=== PATIENT | male | born 1980 | race Caucasian/White ===

== ENCOUNTER 2021-03-09 11:05 | Emergency (ER) | payer OTHER, SELFPAY ==
[2021-03-09 11:06] VITALS: BP 145/86; PULSE 80; RESP 16; TEMP 36; O2SAT 99; BMI 33.3
--- NOTE | 2021-03-09 11:19 | NURSING ---
NO OLD EKGS
--- NOTE | 2021-03-09 11:23 | EDS_ITS ---
HPI History of Present Illness Chief Complaint: Chest Pain Narrative Narrative: Patient presents with 2-day history of constant chest pain on the left side. It is sharp and aching. There is no pleuritic component. There is no radiation of the pain. There is no back pain or tearing sensation. Patient has no lower extremity edema or calf pain no DVT or PE risk factors. No abdominal pain. No shortness of breath. PFSH PFS Medical History (Updated 03/09/21 @ 12:[address] Tin Ivey MD) Ankylosing spondylitis Home Medications meloxicam 7.5 mg PO BID 03/09/21 [History Last Taken Unknown] oxycodone-acetaminophen [Percocet] 1 tab PO Q6H PRN 03/09/21 [History Last Taken Unknown] Allergy/AdvReac Type Severity Reaction Status Date / Time Sulfa (Sulfonamide AdvReac PT UNSURE Verified 03/09/21 11:09 Antibiotics) OF REACTION Surgical History (Updated 03/09/21 @ 12:00 by Rene Laguerre) Hx of appendectomy Hx of tonsillectomy Social History Smoking Status: Current every day smoker tobacco type: cigarettes ROS ROS ED ROS Narrative Past medical history: Reviewed, no medical problems. Medications: Reviewed, no daily medications. Social history: Smoker Family history: He does have a family history of coronary artery disease, his mother started having heart disease in her late 40s. Review of systems: All systems negative except as indicated General: No fever Eyes: No visual changes ENT: No upper airway congestion, normal voice Neck: No neck pain Cardiovascular: No chest pain Respiratory: No shortness of breath or cough Gastrointestinal: No abdominal pain, nausea vomiting or diarrhea Genitourinary: No dysuria Musculoskeletal: Denies myalgias no difficulty with ambulation Skin: No rash Neurological: No memory loss, confusion or any focal weakness Psych: No recent behavioral changes Hematologic: No easy bleeding or easy bruising EXAM Physical Exam Narrative Exam Narrative: Physical exam General: Well nourished, Well developed, No Acute Distress Head: Normocephalic, Atraumatic Eyes: Conjunctiva not pale ENT: Moist mucous membranes Neck: Supple, Nontender, No lymphadenopathy Cardiovascular: Regular rate, Regular rhythm Chest Wall: He has very reproducible parasternal left lower tenderness to palpation. No obvious contusions or rashes. Respiratory: No distress, CTA bilaterally Abdomen: Soft, Nontender, Nondistended Back: Nontender, Normal Inspection. Negative for: CVA tenderness Extremities: Nontender, No edema Skin: Normal color, No rash Neurological: Alert, Normal Strength, Normal Sensation Psychological: Normal affect Const Vital Signs: 03/09/21 11:06 03/09/21 11:49 03/09/21 12:00 Temperature 96.8 F L Temperature Source Temporal Pulse Rate 80 75 Respiratory Rate 16 18 Respiratory Effort Normal Non-Labored Respiratory Pattern Normal Blood Pressure 145/86 H 129/80 H Blood Pressure Mean 105 96 Pulse Ox 99 96 Oxygen Delivery Method Room Air Room Air MDM MDM MDM Narrative Medical decision making narrative: Patient's heart score is 0, 0, 0, 2, 0. Total is 2. He has an unremarkable ED work-up, I believe he is safe for discharge he has no DVT or PE risk factors with a PERC score of 0. Lab Data Labs: Laboratory Results - last 24 hr 03/09/21 03/09/21 11:55 11:55 WBC 5.2 RBC 4.84 Hgb 14.4 Hct 42.8 MCV 88.4 MCH 29.8 MCHC 33.6 RDW Std Deviation 43.0 RDW Coeff of Xiao 13.3 Plt Count 237 MPV 9.4 Immature Gran % (Auto) 0.200 Neut % (Auto) 55.7 Lymph % (Auto) 31.3 [place] % (Auto) 9.9 Eos % (Auto) 2.3 Baso % (Auto) 0.6 Absolute Neuts (auto) 2.9 Absolute Lymphs (auto) 1.61 Nucleated RBC % 0 Sodium 139 Potassium 3.9 Chloride 107 Carbon Dioxide 26.0 Anion Gap 6 BUN 16 Creatinine 1.00 Estim Creat Clear Calc 110.97 Est GFR (MDRD) Af Amer 107 Est GFR (MDRD) Non-Af 88 BUN/Creatinine Ratio 16.1 Glucose 99 Calcium 8.8 Troponin I High Sens < 3.0 L Radiography Diagnostic Testing: Radiology Impression Chest X-Ray 03/09/21 11:27 IMPRESSION: No acute abnormality is seen. Electronically Signed: Yrn Cisneros MD at 11:59 EDT , Service support , EKG Initial EKG: Comments: Sinus rhythm with a rate of 75. Normal AR and QTc interval. No ischemic changes. Discharge Plan Triage Chief Complaint: Chest Pain ED Provider: Tin Ivey Dx/Rx/DC Orders Clinical Impression: Chest pain Instructions: ED Chest Pain, Noncardiac Prescriptions: No Action meloxicam 7.5 mg Tablet 7.5 mg PO BID RF: 0 oxycodone-acetaminophen [Percocet] 5-325 mg Tablet 1 tab PO Q6H PRN (Reason: Pain) RF: 0 Primary Care Provider: Donavon Burris Referrals: [facility] Doctor,Out of [NON-STAFF] - 2 Days Disposition Disposition: Home, Self Care
--- NOTE | 2021-03-09 11:23 | EKG12_ITS ---
Test Reason : CP Blood Pressure : / mmHG Vent. Rate : 075 BPM Atrial Rate : 075 BPM P-R Int : 204 ms QRS Dur : 120 ms QT Int : 400 ms P-R-T Axes : 026 053 040 degrees QTc Int : 446 ms Normal sinus rhythm Confirmed by ERASMO SMALLS, HELEN ([id number]), newspaper editor JUDI SCHWAB ([id number]) on 03/13/2021 1:16:15 PM Referred By: DEE Confirmed By:HELEN ZIMMERMAN MD
--- NOTE | 2021-03-09 11:27 | RAD_ITS ---
STUDY: X-RAY CHEST REASON FOR EXAM: Male, 41 years old. Chest pain TECHNIQUE: Single AP portable view of the chest. COMPARISON: None. FINDINGS: EKG electrodes are seen. The lungs are clear and expanded. There is no demonstrated pleural abnormality. Normal size heart. Normal mediastinum and mariella. Normal visualized pulmonary arteries. Normal visualized aortic arch and descending thoracic aorta. There are diffuse degenerative changes of the visualized thoracic spine. Normal visualized ribs, clavicles, and shoulders. There is no demonstrated abnormality of the visualized soft tissue structures of the upper abdomen. RAD/Chest 1 View (Portable) IMPRESSION: No acute abnormality is seen. Electronically Signed: Yrn Cisneros MD at 11:59 EDT , Service support ,
[2021-03-09 11:49] VITALS: BP 129/80; PULSE 75; RESP 18; O2SAT 96
[2021-03-09] MEDS: Aspirin 81 MG TAB.CHEW 324 MG PO (11:53)
[2021-03-09 12:00] LABS: Absolute Lymphocyte Count 1.61 X10^3/uL (0.83-4.51); Absolute Neutrophil Count 2.9 X10^3/uL (2.0-7.7); Basophil# 0.03 X10^3/uL; Basophil% 0.6 % (0-1); Eosinophil# 0.12 X10^3/uL; Eosinophils% 2.3 % (0-5); Hematocrit 42.8 % (40-54); Hemoglobin 14.4 g/dL (13.0-16.5); Lymphocyte # 1.61 X10^3/ul (0.83-4.51); Lymphocyte % 31.3 % (19-41); Mean Corp Hgb Conc 33.6 g/dL (32-36); Mean Corpuscular Hgb 29.8 pg (27.0-32.0); Mean Corpuscular Volume 88.4 fL (80-94); Mean Platelet Vol. 9.4 fl (6.2-12.0); Monocyte# 0.51 X10^3/uL; Monocyte% 9.9 % (0-10); NRBC Flagged by Analyzer 0 % (0-5); Neutrophil # 2.87 X10^3/uL (2.7-7.7); Neutrophil % 55.7 % (47-70); Platelet Count 237 K/mm3 (150-450); RBC Distribution Width CV 13.3 % (11.6-14.6); Red Blood Count 4.84 M/mm3 (4.6-6.2); White Blood Count 5.2 K/mm3 (4.4-11.0)
[2021-03-09 12:18] LABS: Anion Gap 6 (5-15); BUN 16 mg/dL (7-18); BUN/Creat Ratio 16.1 RATIO (10-20); Calcium,Total 8.8 mg/dL (8.5-10.1); Chloride 107 mmol/L (98-107); EST Glomerular Filtration Rate 88 mL/min (>60); Est Glom Filt Rate - Afr Amer 107 mL/min (>60); Estimated Creatinine Clearance 110.97 ml/min; Glucose 99 mg/dL (74-106); Potassium 3.9 mmol/L (3.5-5.1); Sodium Level 139 mmol/L (136-145); Troponin-I HS < 3.0 pg/mL (3.0-78.5)
[2021-03-09] MEDS: Ketorolac 15 MG/ML Vial IV (13:14)
[2021-03-09 13:15] VITALS: BP 131/82
== END 2021-03-09 13:20 | disposition home or self-care (01) ==
PROVIDERS: Emergency Provider Emergency Medicine
DX: R07.9 Chest pain, unspecified (principal); F17.210 Nicotine dependence, cigarettes, uncomplicated; Z82.49 Family history of ischemic heart disease and other diseases of the circulatory system
CPT/HCPCS: 71045; 80048; 84484; 85025; 93005; 96374; 99285; A4216